=== PATIENT | female | born 1945 | race African-American/Black ===

== ENCOUNTER 2022-08-23 08:12 | Emergency (ER) | payer OTHER ==
[2022-08-23 09:51] VITALS: BMI 21.7
[2022-08-23] MEDS ORDERED: oxyCODONE HCL 5 MG TABLET PO ONE (10:37)
[2022-08-23] MEDS ORDERED: ACETAMINOPHEN 1000 MG/100 ML BAG IVPB ONE (10:37)
[2022-08-23] MEDS ORDERED: ACETAMINOPHEN INJECTION 100 ML IVPB ONE (10:46)
[2022-08-23] MEDS ORDERED: oxyCODONE HCL 5 MG TABLET ONE (10:46)
[2022-08-23] MEDS ORDERED: morphine CARPU-JECT 4 MG/1 ML DISP.SYRIN IVPUSH ONE (12:27)
[2022-08-23] MEDS ORDERED: amLODIPine BESYLATE 10 MG TABLET (FP) PO ONE (12:27)
[2022-08-23] MEDS ORDERED: amLODIPine BESYLATE 10 MG TABLET (FP) ONE (12:44)
[2022-08-23 13:07] LABS: BASO % 0.8 % (0-2.0); EOS % 1.4 % (0-4.5); HEMATOCRIT 42.4 % (32.4-45.2); HEMOGLOBIN 13.8 GM/dL (10.7-15.3); LYMPH % 52.2 % (8-40); MCH 31.3 pg (25.7-33.7); MCHC 32.6 g/dl (32.0-36.0); MEAN CELL VOLUME 96.2 fl (80-96); MEAN PLT VOLUME 8.1 fl (7.5-11.1); MONO % 5.5 % (3.8-10.2); NEUT % 40.1 % (42.8-82.8); PLATELET COUNT 297 10^3/uL (134-434); RDW 13.4 % (11.6-15.6); WHITE BLOOD COUNT 5.6 K/mm3 (4.0-10.0)
[2022-08-23 13:29] LABS: ALBUMIN 4.8 g/dl (3.4-5.0); BLOOD UREA NITROGEN 15.7 mg/dL (7-18); CALCIUM 10.4 mg/dL (8.5-10.1)
[2022-08-23 13:32] LABS: CREATININE 0.9 mg/dL (0.55-1.3)
[2022-08-23 13:34] LABS: TOT PROT 8.8 g/dl (6.4-8.2)
[2022-08-23 13:36] LABS: BILIRUBIN,TOTAL 0.5 mg/dL (0.2-1)
[2022-08-23 15:31] VITALS: PULSE 96; RESP 20; TEMP 98.3
[2022-08-24 16:18] VITALS: BP 165/55
== END 2022-08-23 17:33 | disposition home or self-care (01) ==
LOC: JER 08:12
PROC: 3E033GC Introduction of Other Therapeutic Substance into Peripheral Vein, Percutaneous Approach (ICD-10-PCS; principal; 2022-08-23)
DX: R20.2 Paresthesia of skin (principal)
CPT/HCPCS: 36415; 70450-TC; 80053; 84484; 85025; 93005; 93010; 99285-25

== ENCOUNTER 2023-05-28 13:08 | Observation (INO) | payer OTHER ==
[2023-05-28] MEDS ORDERED: ACETAMINOPHEN 1000 MG/100 ML BAG IVPB ONE (14:35)
[2023-05-28] MEDS ORDERED: ACETAMINOPHEN INJECTION 100 ML IVPB ONE (14:57)
[2023-05-28 15:25] LABS: BASO % 0.9 % (0-2.0); EOS % 1.2 % (0-4.5); HEMATOCRIT 36.1 % (32.4-45.2); HEMOGLOBIN 11.8 GM/dL (10.7-15.3); LYMPH % 55.5 % (8-40); MCH 31.5 pg (25.7-33.7); MCHC 32.8 g/dl (32.0-36.0); MEAN CELL VOLUME 96.1 fl (80-96); MEAN PLT VOLUME 7.3 fl (7.5-11.1); MONO % 7.6 % (3.8-10.2); NEUT % 34.8 % (42.8-82.8); PLATELET COUNT 250 10^3/uL (134-434); RBC 3.76 M/mm3 (3.60-5.2); RDW 13.7 % (11.6-15.6); WHITE BLOOD COUNT 4.6 K/mm3 (4.0-10.0)
[2023-05-28 15:42] LABS: POTASSIUM 4.2 mmol/L (3.5-5.1)
[2023-05-28 15:44] LABS: ALBUMIN 4.1 g/dl (3.4-5.0); CALCIUM 9.3 mg/dL (8.5-10.1)
[2023-05-28 15:45] LABS: BLOOD UREA NITROGEN 17.5 mg/dL (7-18)
[2023-05-28 15:47] LABS: CREATININE 0.9 mg/dL (0.55-1.3)
[2023-05-28 15:50] LABS: BILIRUBIN,TOTAL 0.4 mg/dL (0.2-1); TOT PROT 7.3 g/dl (6.4-8.2)
[2023-05-28 17:28] LABS: EPI CELLS 6 /uL (0-25.1); HYALINE CASTS 0 /uL (0-3.1); PH,URINE 6.5 (5.0-8.0); URINE APPEARANCE CLEAR; URINE BACTERIA 61 /uL (0-1359); URINE BILIRUBIN NEGATIVE (NEGATIVE); URINE COLOR YELLOW; URINE GLUCOSE (UA) NEGATIVE (NEGATIVE); URINE KETONE NEGATIVE (NEGATIVE); URINE LEUK ESTERASE TRACE (NEGATIVE); URINE NITRITE NEGATIVE (NEGATIVE); URINE PROTEIN NEGATIVE (NEGATIVE); URINE RBC 18 /uL (0-23.9); URINE UROBILINOGEN 0.2 mg/dL (0.2-1.0); URINE WBC 8 /uL (0-25.8)
[2023-05-28] MEDS ORDERED: KETOROLAC TROMETHAMINE 15 MG/ML VIAL IVPUSH ONE (20:38)
[2023-05-28] MEDS ORDERED: DOCUSATE SODIUM 100 MG CAPSULE (FP) PO PRN (20:41)
[2023-05-28] MEDS ORDERED: KETOROLAC TROMETHAMINE 15 MG/ML VIAL ONE (20:54)
[2023-05-28] MEDS ORDERED: oxyCODONE HCL 5 MG TABLET ONE (23:02)
[2023-05-28] MEDS: oxyCODONE HCL 5 MG TABLET PO PRN (23:07)
[2023-05-29] MEDS ORDERED: ALBUTEROL SO4 HFA INHALER IH PRN (00:05)
[2023-05-29] MEDS: CARVEDILOL 25 MG TABLET (FP) PO SCH ×3 (00:26→22:13)
[2023-05-29] MEDS: PRAMIPEXOLE DIHYDROCHLORIDE 0.25 MG TABLET PO SCH ×2 (00:43→22:14)
[2023-05-29] MEDS ORDERED: ACETAMINOPHEN 1000 MG/100 ML BAG IVPB PRN (04:39)
[2023-05-29] MEDS ORDERED: oxyCODONE HCL 5 MG TABLET ONE (05:01)
[2023-05-29] MEDS: oxyCODONE HCL 5 MG TABLET PO PRN ×2 (05:07→22:34)
[2023-05-29 08:52] LABS: INR 1.03 (0.83-1.09); PROTHROMBIN TIME (PATIENT) 11.9 SEC (9.7-13.0)
[2023-05-29 08:55] LABS: ACTIVATED PTT 29.9 SECONDS (25.2-36.5); BASO % 0.7 % (0-2.0); EOS % 1.1 % (0-4.5); HEMOGLOBIN 11.8 GM/dL (10.7-15.3); LYMPH % 49.6 % (8-40); MCH 31.2 pg (25.7-33.7); MCHC 32.6 g/dl (32.0-36.0); MEAN CELL VOLUME 95.7 fl (80-96); MEAN PLT VOLUME 7.9 fl (7.5-11.1); MONO % 7.8 % (3.8-10.2); NEUT % 40.8 % (42.8-82.8); PLATELET COUNT 238 10^3/uL (134-434); RBC 3.76 M/mm3 (3.60-5.2); RDW 13.4 % (11.6-15.6); WHITE BLOOD COUNT 5.6 K/mm3 (4.0-10.0)
[2023-05-29 09:14] LABS: POTASSIUM 4.3 mmol/L (3.5-5.1)
[2023-05-29] MEDS ORDERED: CARVEDILOL 12.5 MG TABLET (FP) ONE (09:34)
[2023-05-29] MEDS ORDERED: LOSARTAN POTASSIUM 50 MG TABLET ONE (09:34)
[2023-05-29] MEDS ORDERED: CYCLOBENZAPRINE HCL 5 MG TABLET ONE (09:35)
[2023-05-29] MEDS ORDERED: CARVEDILOL 25 MG TABLET (FP) ONE (09:35)
[2023-05-29 09:40] LABS: CALCIUM 9.3 mg/dL (8.5-10.1)
[2023-05-29 09:41] LABS: BLOOD UREA NITROGEN 18.2 mg/dL (7-18); MAGNESIUM 2.2 mg/dL (1.8-2.4)
[2023-05-29 09:44] LABS: CREATININE 0.9 mg/dL (0.55-1.3)
[2023-05-29 09:45] LABS: PHOSPHOROUS 3.7 mg/dL (2.5-4.9)
[2023-05-29] MEDS: LOSARTAN POTASSIUM 50 MG TABLET PO SCH (09:55)
[2023-05-29] MEDS: CYCLOBENZAPRINE HCL 5 MG TABLET PO SCH (09:55)
[2023-05-29] MEDS: ASPIRIN COATED 81 MG TABLET.EC PO SCH (09:56)
[2023-05-29] MEDS: BUDESONIDE/FORMETEROL FUMARATE 160/4.5 mcg INHALER IH SCH ×2 (10:00→22:14)
[2023-05-29] MEDS ORDERED: LIDOCAINE 5% TOPICAL PATCH TP SCH (10:00)
[2023-05-29] MEDS: CLOPIDOGREL BISULFATE 75 MG TABLET (FP) PO SCH (13:07)
[2023-05-29] MEDS: FAMOTIDINE 20 MG TABLET PO SCH (13:07)
[2023-05-29] MEDS ORDERED: CLOPIDOGREL BISULFATE 75 MG TABLET (FP) ONE (13:08)
[2023-05-29] MEDS ORDERED: amLODIPine BESYLATE 10 MG TABLET (FP) ONE (13:08)
[2023-05-29] MEDS: LIDOCAINE 5% TOPICAL PATCH TP SCH (13:08)
[2023-05-29] MEDS ORDERED: LIDOCAINE 4% PATCH TP ONE (13:08)
[2023-05-29] MEDS ORDERED: FAMOTIDINE 20 MG TABLET ONE (13:08)
[2023-05-29] MEDS: amLODIPine BESYLATE 10 MG TABLET (FP) PO SCH (13:08)
[2023-05-29] MEDS: LIDOCAINE PATCH REMOVAL MC SCH (22:00)
[2023-05-29] MEDS: AMITRIPTYLINE HCL 10 MG TABLET PO SCH ×2 (22:14→22:24)
[2023-05-29] MEDS: ATORVASTATIN CA 80 MG TABLET (FP) PO SCH ×2 (22:14→22:25)
[2023-05-30 01:14] VITALS: BMI 22.6
[2023-05-30] MEDS: oxyCODONE HCL 5 MG TABLET PO PRN ×2 (07:57→16:59)
[2023-05-30] MEDS: LOSARTAN POTASSIUM 50 MG TABLET PO SCH (09:27)
[2023-05-30] MEDS: ASPIRIN COATED 81 MG TABLET.EC PO SCH (09:27)
[2023-05-30] MEDS: amLODIPine BESYLATE 10 MG TABLET (FP) PO SCH (09:27)
[2023-05-30] MEDS: CARVEDILOL 25 MG TABLET (FP) PO SCH ×2 (09:27→22:04)
[2023-05-30] MEDS: FAMOTIDINE 20 MG TABLET PO SCH (09:27)
[2023-05-30] MEDS: CYCLOBENZAPRINE HCL 5 MG TABLET PO SCH (09:28)
[2023-05-30] MEDS: LIDOCAINE 5% TOPICAL PATCH TP SCH (09:28)
[2023-05-30] MEDS: CLOPIDOGREL BISULFATE 75 MG TABLET (FP) PO SCH (09:29)
[2023-05-30] MEDS: BUDESONIDE/FORMETEROL FUMARATE 160/4.5 mcg INHALER IH SCH ×2 (09:30→22:08)
[2023-05-30] MEDS ORDERED: PRAMIPEXOLE DIHYDROCHLORIDE 0.25 MG TABLET PO SCH (22:00)
[2023-05-30] MEDS: ATORVASTATIN CA 80 MG TABLET (FP) PO SCH (22:04)
[2023-05-30] MEDS: LIDOCAINE PATCH REMOVAL MC SCH (22:04)
[2023-05-30] MEDS: MELATONIN 5 MG TABLETS PO PRN (22:05)
[2023-05-30] MEDS: PRAMIPEXOLE DIHYDROCHLORIDE 0.5 MG TABLET PO SCH (22:05)
[2023-05-31] MEDS: oxyCODONE HCL 5 MG TABLET PO PRN ×3 (01:42→20:59)
[2023-05-31] MEDS: PRAMIPEXOLE DIHYDROCHLORIDE 0.25 MG TABLET PO SCH ×2 (08:44→14:26)
[2023-05-31] MEDS ORDERED: BISACODYL 5 MG TABLET.DR (FP) PO ONE (10:00)
[2023-05-31] MEDS: LIDOCAINE 5% TOPICAL PATCH TP SCH ×2 (10:58→11:15)
[2023-05-31] MEDS: amLODIPine BESYLATE 10 MG TABLET (FP) PO SCH (11:00)
[2023-05-31] MEDS: CLOPIDOGREL BISULFATE 75 MG TABLET (FP) PO SCH ×2 (11:00→11:18)
[2023-05-31] MEDS: POLYETHYLENE GLYCOL (HEALTHYLAX) 3350 17 GM PACKET PO SCH (11:00)
[2023-05-31] MEDS: FAMOTIDINE 20 MG TABLET PO SCH (11:10)
[2023-05-31] MEDS: LOSARTAN POTASSIUM 50 MG TABLET PO SCH (11:10)
[2023-05-31] MEDS: ASPIRIN COATED 81 MG TABLET.EC PO SCH (11:10)
[2023-05-31] MEDS: CARVEDILOL 25 MG TABLET (FP) PO SCH ×2 (11:10→21:00)
[2023-05-31] MEDS: BUDESONIDE/FORMETEROL FUMARATE 160/4.5 mcg INHALER IH SCH ×2 (11:15→21:06)
[2023-05-31] MEDS: MELATONIN 5 MG TABLETS PO PRN (21:00)
[2023-05-31] MEDS: ATORVASTATIN CA 80 MG TABLET (FP) PO SCH (21:01)
[2023-05-31] MEDS: LIDOCAINE PATCH REMOVAL MC SCH (21:01)
[2023-05-31] MEDS: PRAMIPEXOLE DIHYDROCHLORIDE 0.5 MG TABLET PO SCH (21:01)
[2023-06-01] MEDS: PRAMIPEXOLE DIHYDROCHLORIDE 0.25 MG TABLET PO SCH ×2 (08:58→13:21)
[2023-06-01] MEDS: diazePAM 2 MG TABLET PO PRN ×2 (08:58→21:48)
[2023-06-01] MEDS: FAMOTIDINE 20 MG TABLET PO SCH (11:02)
[2023-06-01] MEDS: CARVEDILOL 25 MG TABLET (FP) PO SCH ×2 (11:02→21:47)
[2023-06-01] MEDS: ASPIRIN COATED 81 MG TABLET.EC PO SCH (11:02)
[2023-06-01] MEDS: CLOPIDOGREL BISULFATE 75 MG TABLET (FP) PO SCH (11:03)
[2023-06-01] MEDS: LOSARTAN POTASSIUM 50 MG TABLET PO SCH (11:03)
[2023-06-01] MEDS: amLODIPine BESYLATE 10 MG TABLET (FP) PO SCH (11:03)
[2023-06-01] MEDS: LIDOCAINE 4% PATCH TP SCH (11:03)
[2023-06-01] MEDS: BUDESONIDE/FORMETEROL FUMARATE 160/4.5 mcg INHALER IH SCH ×2 (11:03→22:08)
[2023-06-01] MEDS: POLYETHYLENE GLYCOL (HEALTHYLAX) 3350 17 GM PACKET PO SCH ×2 (11:03→11:04)
[2023-06-01] MEDS: LIDOCAINE PATCH REMOVAL MC SCH (21:47)
[2023-06-01] MEDS: ATORVASTATIN CA 80 MG TABLET (FP) PO SCH (21:47)
[2023-06-01] MEDS: MELATONIN 5 MG TABLETS PO PRN (21:47)
[2023-06-01] MEDS: PRAMIPEXOLE DIHYDROCHLORIDE 0.5 MG TABLET PO SCH (21:47)
[2023-06-01] MEDS ORDERED: ACETAMINOPHEN 1000 MG/100 ML BAG IVPB ONE (22:15)
[2023-06-02] MEDS: PRAMIPEXOLE DIHYDROCHLORIDE 0.25 MG TABLET PO SCH ×2 (08:26→12:17)
[2023-06-02] MEDS: LOSARTAN POTASSIUM 50 MG TABLET PO SCH (09:21)
[2023-06-02] MEDS: amLODIPine BESYLATE 10 MG TABLET (FP) PO SCH (09:21)
[2023-06-02] MEDS: LIDOCAINE 4% PATCH TP SCH (09:21)
[2023-06-02] MEDS: CARVEDILOL 25 MG TABLET (FP) PO SCH ×2 (09:21→23:24)
[2023-06-02] MEDS: ASPIRIN COATED 81 MG TABLET.EC PO SCH (09:21)
[2023-06-02] MEDS: FAMOTIDINE 20 MG TABLET PO SCH (09:22)
[2023-06-02] MEDS: CLOPIDOGREL BISULFATE 75 MG TABLET (FP) PO SCH (09:31)
[2023-06-02] MEDS: BUDESONIDE/FORMETEROL FUMARATE 160/4.5 mcg INHALER IH SCH ×2 (09:32→23:28)
[2023-06-02] MEDS: POLYETHYLENE GLYCOL (HEALTHYLAX) 3350 17 GM PACKET PO SCH (09:32)
[2023-06-02] MEDS: diazePAM 2 MG TABLET PO PRN (10:10)
[2023-06-02] MEDS: oxyCODONE HCL 5 MG TABLET PO PRN ×2 (12:58→23:22)
[2023-06-02] MEDS: ATORVASTATIN CA 80 MG TABLET (FP) PO SCH (23:24)
[2023-06-02] MEDS: PRAMIPEXOLE DIHYDROCHLORIDE 0.5 MG TABLET PO SCH (23:24)
[2023-06-02] MEDS: LIDOCAINE PATCH REMOVAL MC SCH (23:27)
[2023-06-03] MEDS: FAMOTIDINE 20 MG TABLET PO SCH (09:00)
[2023-06-03] MEDS: LOSARTAN POTASSIUM 50 MG TABLET PO SCH (09:00)
[2023-06-03] MEDS: PRAMIPEXOLE DIHYDROCHLORIDE 0.25 MG TABLET PO SCH ×2 (09:00→12:49)
[2023-06-03] MEDS: diazePAM 2 MG TABLET PO PRN (09:00)
[2023-06-03] MEDS: amLODIPine BESYLATE 10 MG TABLET (FP) PO SCH (09:00)
[2023-06-03] MEDS: CARVEDILOL 25 MG TABLET (FP) PO SCH ×2 (09:00→21:49)
[2023-06-03] MEDS: ASPIRIN COATED 81 MG TABLET.EC PO SCH (09:00)
[2023-06-03] MEDS: CLOPIDOGREL BISULFATE 75 MG TABLET (FP) PO SCH (09:01)
[2023-06-03] MEDS: LIDOCAINE 4% PATCH TP SCH (09:01)
[2023-06-03] MEDS: BUDESONIDE/FORMETEROL FUMARATE 160/4.5 mcg INHALER IH SCH ×2 (09:01→21:50)
[2023-06-03] MEDS: POLYETHYLENE GLYCOL (HEALTHYLAX) 3350 17 GM PACKET PO SCH (09:01)
[2023-06-03] MEDS: oxyCODONE HCL 5 MG TABLET PO PRN ×2 (12:50→21:42)
[2023-06-03] MEDS: ATORVASTATIN CA 80 MG TABLET (FP) PO SCH (21:49)
[2023-06-03] MEDS: LIDOCAINE PATCH REMOVAL MC SCH (21:50)
[2023-06-03] MEDS: PRAMIPEXOLE DIHYDROCHLORIDE 0.5 MG TABLET PO SCH (21:50)
[2023-06-04] MEDS: oxyCODONE HCL 5 MG TABLET PO PRN (05:41)
[2023-06-04 07:45] VITALS: RESP 18; TEMP 98.8
[2023-06-04 10:24] VITALS: BP 141/74; PULSE 93
[2023-06-04] MEDS: CARVEDILOL 25 MG TABLET (FP) PO SCH (10:25)
[2023-06-04] MEDS: POLYETHYLENE GLYCOL (HEALTHYLAX) 3350 17 GM PACKET PO SCH (10:26)
[2023-06-04] MEDS: FAMOTIDINE 20 MG TABLET PO SCH (10:26)
[2023-06-04] MEDS: ASPIRIN COATED 81 MG TABLET.EC PO SCH (10:26)
[2023-06-04] MEDS: LOSARTAN POTASSIUM 50 MG TABLET PO SCH (10:26)
[2023-06-04] MEDS: CLOPIDOGREL BISULFATE 75 MG TABLET (FP) PO SCH (10:27)
[2023-06-04] MEDS: PRAMIPEXOLE DIHYDROCHLORIDE 0.25 MG TABLET PO SCH (10:27)
[2023-06-04] MEDS: amLODIPine BESYLATE 10 MG TABLET (FP) PO SCH (10:27)
[2023-06-04] MEDS: BUDESONIDE/FORMETEROL FUMARATE 160/4.5 mcg INHALER IH SCH (10:28)
[2023-06-04] MEDS: LIDOCAINE 4% PATCH TP SCH (10:28)
== END 2023-06-04 13:07 ==
LOC: JER 13:08 → JERBED 19:08 → INTOOBSV 19:08 → J4W 05-29 20:48
PROVIDERS: ADMIT Internal Medicine; ATTEND Family Medicine
PROC: 3E033NZ Introduction of Analgesics, Hypnotics, Sedatives into Peripheral Vein, Percutaneous Approach (ICD-10-PCS; principal; 2023-05-28)
DX: G93.9 Disorder of brain, unspecified (principal); R91.8 Other nonspecific abnormal finding of lung field; M54.17 Radiculopathy, lumbosacral region; R77.8 Other specified abnormalities of plasma proteins; I10 Essential (primary) hypertension; I65.21 Occlusion and stenosis of right carotid artery; E78.00 Pure hypercholesterolemia, unspecified; G25.81 Restless legs syndrome; G43.909 Migraine, unspecified, not intractable, without status migrainosus; D32.9 Benign neoplasm of meninges, unspecified; Z87.891 Personal history of nicotine dependence; G62.9 Polyneuropathy, unspecified; M81.0 Age-related osteoporosis without current pathological fracture; K21.9 Gastro-esophageal reflux disease without esophagitis; E53.8 Deficiency of other specified B group vitamins; F10.21 Alcohol dependence, in remission
CPT/HCPCS: 36415; 70450-TC; 70551-TC; 71045-TC-FY; 71250-TC; 80048; 80053; 81003; 83735; 84100; 84484; 85025; 85610; 85730; 87086; 87635; 93005; 93010; 96374; 96375; 96376; 97116-GP; 97162-GP; 99285-25; G0378

== ENCOUNTER 2023-06-04 14:38 | Emergency (ER) | payer OTHER ==
[2023-06-04 15:57] VITALS: BP 139/65; PULSE 90; TEMP 97.9
[2023-06-04 16:19] VITALS: RESP 16; BMI 24.1
== END 2023-06-04 16:37 | disposition home or self-care (01) ==
LOC: JER 14:38
DX: M54.17 Radiculopathy, lumbosacral region (principal)
CPT/HCPCS: 99283-25